=== PATIENT | male | born 1980 | race African-American/Black ===

== ENCOUNTER 2021-08-25 09:26 | Emergency (ER) | payer MEDICAID ==
[~2021-08-25] VITALS: Ht 172.7 cm; Wt 71.0 kg
[~2021-08-25 09:26] MED LIST: NO MEDS
[2021-08-25 09:38] VITALS: BP 135/79
[2021-08-25] MEDS ORDERED: IBUPROFEN 800MG TABLET PO ONE (10:30)
== END 2021-08-25 11:08 | disposition home or self-care (01) ==
LOC: ER 09:26
DX: S63.501A Unspecified sprain of right wrist, initial encounter (principal); V49.49XA Driver injured in collision with other motor vehicles in traffic accident, initial encounter; Y93.89 Activity, other specified; Y92.410 Unspecified street and highway as the place of occurrence of the external cause
CPT/HCPCS: 73110; 99283